=== PATIENT | male | born 1965 | race Caucasian/White ===

== ENCOUNTER 2024-06-18 19:33 | Emergency (ER) | payer OTHER, SELFPAY ==
[2024-06-18 19:44] VITALS: BP 140/87
[2024-06-18 20:03] LABS: % Basophils 0.6 % (0-2); % Eosinophils 1.4 % (0-6); % Immature Granulocytes 0.4 % (0-0.5); % Lymphocytes 30.5 % (20.5-51.1); % Monocytes 7.1 % (1.7-9.3); Absolute Basophils 0.1 10^3/uL (0-0.2); Absolute Eosinophils 0.1 10^3/uL (0-0.7); Absolute Lymphocytes 2.4 10^3/uL (1.2-3.4); Absolute Monocytes 0.6 10^3/uL (0.1-0.6); Absolute Neutrophils 4.7 10^3/uL (1.4-6.5); Hematocrit 47.4 % (39.0-52.0); Hemoglobin 16.7 g/dL (13.0-18.0); Mean Corp Hgb Conc. 35.2 g/dL (33.0-37.0); Mean Corpuscular Hgb 30.7 pg (27.0-31.0); Mean Corpuscular Volume 87.1 fL (80.0-94.0); Mean Platelet Volume 10.1 fL (7.4-10.4); Nucleated Red Blood Cells % 0 % (-); Platelet Count 177 10^3/uL (130-400); Red Blood Cell Count 5.44 10^6/uL (4.70-6.10); Red Cell Dist. Width 12.7 % (11.5-14.5); White Blood Cell Count 7.9 10^3/uL (4.8-10.8)
[2024-06-18 20:29] LABS: Troponin I < 0.012 ng/ml
[2024-06-18 20:32] LABS: ALT (SGPT) 73 U/L (0-50); AST (SGOT) 43 U/L (17-59); Albumin 4.7 g/dl (3.5-5.0); Alkaline Phosphatase 131 U/L (38-126); Blood Urea Nitrogen 22 mg/dl (9-20); Calcium 9.6 mg/dl (8.4-10.2); Carbon Dioxide 20 mmol/L (22-30); Chloride 104 mmol/L (98-107); Glucose 97 mg/dl (70-99); Potassium 4.1 mmol/L (3.5-5.1); Sodium 137 mmol/L (135-145); Total Bilirubin 0.7 mg/dl (0.2-1.3); Total Protein 6.8 g/dl (6.3-8.2); eGFR > 60.00
[2024-06-18 20:46] LABS: NT-proBNP < 20.0 pg/ml
[2024-06-19 03:35] VITALS: BP 128/83
[2024-06-19 05:17] LABS: Troponin I < 0.012 ng/ml
--- NOTE | 2024-06-19 05:50 | ED.GENMED ---
History of Present Illness
General
Chief Complaint: Chest Pain
Source: patient and previous hospital records (ED visit 2018 with complaints of chest pain. Unremarkable ED evaluation at that time.)
Exam Limitations: none
Time Seen by Provider: 06/19/24 05:42
Nursing documentation reviewed up to this point in time: agreed with
History of Present Illness
History of Present Illness:
This is a 59-year-old gentleman who has no significant past medical history presents with substernal chest pain that began yesterday afternoon while vigorously whisking eggs. No associated symptoms but he was concerned when chest pain seem to
linger for a few hours. Chest pain seems to be more right parasternal and improved after taking a dose of Tylenol.
No other associated symptoms. No shortness of breath, no palpitations, no nausea or vomiting, no neck nor back pain nor abdominal pain, no diaphoresis, no dizziness or lightheadedness.
No history of CAD nor family history of such.
Past History
Past History
ED Past Medical History: Other (Migraines)
ED Past Surgical History: Appendectomy, Cholecystectomy, Orthopedic and Other (Hernia, surgery for right eye trauma)
Social History
Tobacco: Non-smoker
Alcohol: Occasional
Drug: None
Personal:
Living: with family
Employment: Employed (Teacher)
Family History
Family History: Negative CAD or Sudden
Phy Exam
Physical Exam
Physical Exam:
GENERAL: 59-year-old gentleman appears his stated age, awake and alert, pleasant, appears in no acute distress. is accompanying.
EYE: anicteric
NECK: Supple, nontender, no meningismus, no significant adenopathy.
ENT: oral mucosa is moist.
CARDIAC: Regular rate and rhythm. no murmur.
LUNGS: Clear breath sounds bilaterally, no acute respiratory distress, no wheezes/rales/rhonchi
ABDOMEN: Soft, nondistended, without focal tenderness, no r/g, normoactive BS.
NEUROLOGICAL: Alert and oriented x3, no focal neuro deficits. Gait is dey and steady.
SKIN: Warm and dry, normal color, skin intact. No rash.
MUSCULOSKELETAL: No C/C/E. peripheral pulses are full and equal b/l. No palpable tenderness.
PSYCH: Normal and appropriate interaction.
Scores
Heart Score for Chest Pain Patients
STEMI patient?: Yes
History: Slightly or Non-Suspicious
ECG: Normal
Age: >45 - <65 years
Risk Factors: No Risk Factors
Troponin: </= Normal Limit
Heart Score for Chest Pain Patients: 1
Heart Score Risk: 2.5% MACE over next 6 weeks
Course
Orders/Labs/Results
Orders:
Orders
06/18/24 19:34
EKG [Electrocardiogram (*1)] Urgent
Reason for Study: Chest Pain
06/18/24 19:35
EKG- Treatment ONCE
06/18/24 19:49
Electrocardiogram (*1) Urgent
Reason for Study: Other
Other Reason for Exam: Respiratory Distress
Cardiac Monitoring- Treatment ONCE
EKG- Treatment ONCE
IV Insert/Care/Rem.- Treatment PRN
O2 Therapy [RESP] Urgent
Titrate/Wean O2 to maintain O2 sat greater than (%): 93
Special Instructions: TO MAINTAIN CONTINUOUS O2 SATS >/= 93%
Pulse Ox/cont/shift [RESP] Urgent
Quantity: 1
Special Instructions: continuous pulse ox
06/18/24 19:57
Complete Blood Count/With Diff Urgent
Comprehensive Metabolic Panel Urgent
NT-proBNP Urgent
Troponin I Urgent
06/19/24 00:02
CR Chest - 2 Views Urgent
Reason For Exam: respiratory distress
06/19/24 03:41
Electrocardiogram (*1) Urgent
Reason for Study: Chest Pain
Other Reason for Exam: repeat troponin
Cardiology Consult: Unknown
06/19/24 03:42
EKG- Treatment ONCE
06/19/24 03:48
Troponin I Urgent
Abnormal Lab Results
06/18/24
19:57
Carbon Dioxide 20 L mmol/L
(22-30)
BUN 22 H mg/dl
(9-20)
ALT 73 H U/L
(0-50)
Alkaline Phosphatase 131 H U/L
(38-126)
06/18/24 19:57
06/18/24 19:57
Vital Signs
Initial and Last Documented VS:
Initial Vital Signs
Temp Pulse Resp BP Pulse Ox
97.6 F 66 20 140/87 96
06/18/24 19:44 06/18/24 19:44 06/18/24 19:44 06/18/24 19:44 06/18/24 19:44
Last Documented Vital Signs
Temp Pulse Resp BP Pulse Ox
97.7 F 68 16 131/93 98
06/19/24 03:35 06/19/24 05:53 06/19/24 05:53 06/19/24 05:53 06/19/24 05:53
MDM/Problems Addressed
Differential Diagnosis Includes:
Concern for musculoskeletal chest pain, ACS, GERD. No risk factors for thromboembolism nor history of.
No significant family history.
Labs are unremarkable including negative troponin x 2.
Mildly elevated ALT, similar elevation 2018. Mildly elevated alkaline phosphatase. Patient has had no abdominal pain, no GI symptoms. Abdomen is soft without appreciable tenderness. Nothing to suggest biliary colic.
EKG is unremarkable and unchanged from previous.
Chest x-ray is unremarkable, clear lung gomez, normal heart size, normal mediastinum.
I suspect chest pain is musculoskeletal/costochondritis in nature.
Recommend supportive measures.
Follow-up with PCP for recheck.
*Radiology
Radiology exam reviewed: preliminary read by ED provider (Chest x-ray is unremarkable. Clear lung gomez. Normal heart size. Normal mediastinum.)
*Pulse Oximetry
Patient hypoxic: no
*EKG
Interpreted by ED Provider?: Yes
Interpretation: normal
Comparison EKG: no changes
Rate: normal
Rhythm: sinus
[place]: normal axis
Interval: normal interval
QRS Pattern: normal QRS
Ischemia: no ischemia
*[employer] Interpretation
Rate: normal
Interpretation: normal
Rhythm: sinus
*Critical Care Note
Total Time (30-74mins, 75-104mins- exclusive of procedures): Not Applicable
ED Attending Note
-
Portions of this chart may have been created with voice recognition software.� Occasional wrong word or��sound alike� substitutions may have occurred due to the inherent limitations of voice recognition software.
Discharge Plan
Departure
Patient Disposition: Home (Routine Discharge)
Date of Disposition: 06/19/24
Time of Disposition: 05:50
Patient with high blood pressure during this ER visit?: No
Condition: Good
Discharge Problem:
Acute costochondritis
Instructions: Costochondritis, Chest Pain PCP Follow Up
Prescriptions:
No Action
acetaminophen 500 mg Tablet
500 - 1,000 mg PO Q6H PRN (Reason: pain)
loratadine 10 mg Tablet
10 mg PO DAILY
ibuprofen 200 mg tablet
400 - 600 mg PO Q6HPRN PRN (Reason: moderate pain) Qty: 1 0RF
polyethylene glycol 3350 [Miralax] 17 gram/dose powder
4 g PO DAILY PRN (Reason: Constipation) Qty: 119 0RF
Rx Instructions:
start a laxative such as MIRALAX on day 2 after surgery if no bowel movement yet as long as no nausea/vomiting and passing gas
oxycodone 5 mg tablet
5 mg PO Q4HPRN PRN (Reason: breakthrough/severe pain) Qty: 10 0RF
Referrals:
June Gary CRNP [Family Provider] - Call in 1-3 days for appt
Interventions
Interventions:
*Risk Screen - Suicide Last Done: 06/18/24 19:44
*General Assessment Last Done: 06/18/24 19:44
*Neglect/Abuse Screening Last Done: 06/18/24 19:44
ED- Fall Risk Assessment Last Done: 06/19/24 03:35
*ED COVID-19 Vaccine History Last Done: 06/18/24 19:44
*Nursing Disposition Last Done: 06/19/24 05:54
ED- Cardiac Assessment Last Done: 06/19/24 03:35
Discharge Date and Time
Discharge Date/Time: 06/19/24 05:54
Print Language: ERITREAN
[2024-06-19 05:53] VITALS: BP 131/93
== END 2024-06-19 05:54 | disposition home or self-care (01) ==
LOC: EMR 19:33
PROVIDERS: Student in an Organized Health Care Education/Training Program; EMERGENCY PHYSICIAN Emergency Medicine; FAMILY PHYSICIAN Nurse Practitioner
DX: M94.0 Chondrocostal junction syndrome [Tietze] (principal)
CPT/HCPCS: 99285; 71046; 80053; 83880; 84484; 85025; 93005